=== PATIENT | male | born 1975 | race Caucasian/White ===

== ENCOUNTER 2018-12-19 04:30 | Emergency (ER) | payer MEDICAID ==
[~2018-12-19] VITALS: Ht 177.8 cm; Wt 86.2 kg
[~2018-12-19 04:30] MED LIST: (None)20 M1 PO; ALBU90OI INH; ALBU90OI6 INH; AMOX500 PO; AZIT250 PO; CLON.2TP TP; CODACE30 PO; CODACEE120 PO; CYCL10 PO; DOXY100 PO; ERYES400 PO; HYDACE10 PO; HYDACE10B; HYDACE5; HYDACE5 PO; HYDACE5325 PO; HYDGUAL120 PO; HYDMOR2 PO; IBUHYD; IBUP200; IBUP400 PO; IBUP800; IBUP800 PO; LORA.5 PO; LORA1 PO; METPRE4DP PO; MORPHINE; MUSCLE RELAXER; NAPR500 PO; NAPR500EC PO; NAPR550 PO; OXYACE5T PO; OXYACE7.5T; PRED10 PO; PRED20 PO; PREDNISONE TAPER; PROM25 PO; Prednisone20 MG PO; RXCODACET PO; RXCYCL10 PO; RXHYDACE PO; RXHYDMOR2 PO; RXNAPNA550 PO; RXTRAM50 PO; TRAM50 PO; Ultram50 MG PO; VARE1 PO; Ventolin Soln3 ML INH; Ventolin/Prove6.7 GM INH; Voltaren100 GM TOP; Zithromax250 MG PO
[2018-12-19] MEDS ORDERED: Benadryl Itch28.3 G1 TOP (07:55)
== END 2018-12-19 08:03 | disposition home or self-care (01) ==
LOC: ER 04:30
DX: L25.9 Unspecified contact dermatitis, unspecified cause (principal); F17.210 Nicotine dependence, cigarettes, uncomplicated
CPT/HCPCS: 99282; J1100; Q0163

== ENCOUNTER 2019-04-16 18:52 | Emergency (ER) | payer SELFPAY ==
[~2019-04-16] VITALS: Ht 175.3 cm; Wt 74.8 kg
[~2019-04-16 18:52] MED LIST changes: +Benadryl Itch28.3 G1 TOP
[2019-04-16] MEDS ORDERED: Triamcinolone A15 G3 TOP (19:22)
[2019-04-16] MEDS ORDERED: Monodox100 MG PO (19:22)
== END 2019-04-16 19:47 | disposition home or self-care (01) ==
LOC: ER 18:52
DX: L03.113 Cellulitis of right upper limb (principal); F17.210 Nicotine dependence, cigarettes, uncomplicated
CPT/HCPCS: 99282

== ENCOUNTER 2019-06-15 22:04 | Emergency (ER) | payer MEDICAID ==
[~2019-06-15] VITALS: Ht 177.8 cm; Wt 93.0 kg
[~2019-06-15 22:04] MED LIST changes: +Monodox100 MG PO; +Triamcinolone A15 G3 TOP
[2019-06-15 23:15] LABS: BASOPHILS ABSOLUTE AUTO 0.07 K/mm3 (0.00-0.23); BASOPHILS PERCENT AUTO 1 % (0-2); EOSINOPHILS ABSOLUTE AUTO 0.53 K/mm3 (0.00-0.68); EOSINOPHILS PERCENT AUTO 6 % (0-6); Hematocrit 43.3 % (37.0-53.0); Hemoglobin 14.2 g/dL (13.5-17.5); IMMATURE GRAN ABSOLUTE AUTO 0.03 K/mm3 (0.00-0.10); IMMATURE GRAN PERCENT AUTO 0 % (0-1); LYMPHOCYTES ABSOLUTE AUTO 2.36 K/mm3 (0.84-5.20); LYMPHOCYTES PERCENT AUTO 27 % (21-46); MONOCYTES ABSOLUTE AUTO 0.84 K/mm3 (0.16-1.47); MONOCYTES PERCENT AUTO 10 % (4-13); Mean Corpuscular HGB 30.6 pg (26.0-34.0); Mean Corpuscular HGB Conc 32.8 g/dL (31.5-36.5); Mean Corpuscular Volume 93 fL (80-100); Mean Platelet Volume 9.9 fL (9.1-12.4); NEUTROPHILS ABSOLUTE AUTO 4.96 K/mm3 (1.96-9.15); NEUTROPHILS PERCENT AUTO 57 % (41-73); Platelet Count 240 K/mm3 (150-400); RDW Coefficient Variation 13.2 % (11.7-14.2); RDW Standard Deviation 45.3 fL (35.1-46.3); Red Blood Cell Count 4.64 M/mm3 (4.30-5.90); White Blood Cell Count 8.79 K/mm3 (4.00-11.30)
[2019-06-15 23:35] LABS: Alanine Aminotransfer (ALT/SGP 29 U/L (12-78); Albumin, Blood 3.6 g/dL (3.4-5.0); Albumin/Globulin Ratio 1.3 (0.8-1.8); Alk Phos 65 U/L (50-136); Anion Gap 4 mmol/L (6-16); Aspartate Aminotrans (AST/SGOT 18 U/L (12-37); Bilirubin, Total 0.2 mg/dL (0.1-1.0); Blood Urea Nitrogen 18 mg/dL (8-24); CO2, Blood 28 mmol/L (21-32); Calcium, Blood 8.6 mg/dL (8.5-10.1); Chloride, Blood 110 mmol/L (98-108); Creatinine, Blood 0.82 mg/dL (0.60-1.20); Globulin, Blood 2.8 g/dL (2.2-4.0); Glomerular Filtration Rate >60 (60-); Glucose, Blood 122 mg/dL (70-99); Potassium, Blood 3.6 mmol/L (3.5-5.5); Sodium, Blood 142 mmol/L (136-145); Total Protein, Blood 6.4 g/dL (6.4-8.2)
[2019-06-15] MEDS ORDERED: Triamcinolone A15 G3 TOP (23:41)
[2019-06-15] MEDS ORDERED: BENADRYL25 MG PO (23:41)
== END 2019-06-15 23:50 | disposition home or self-care (01) ==
LOC: ER 22:04
PROVIDERS: Emergency Medicine
DX: L29.1 Pruritus scroti (principal); F17.210 Nicotine dependence, cigarettes, uncomplicated
CPT/HCPCS: 36415; 80053; 85025; 96374; 99283-25; J1200

== ENCOUNTER 2019-09-07 19:17 | Emergency (ER) | payer OTHER ==
[~2019-09-07] VITALS: Ht 177.8 cm; Wt 90.7 kg
[~2019-09-07 19:17] MED LIST changes: +BENADRYL25 MG PO
[2019-09-07] MEDS ORDERED: Keflex500 MG PO (21:24)
== END 2019-09-07 21:35 | disposition home or self-care (01) ==
LOC: ER 19:17
DX: S61.210A Laceration without foreign body of right index finger without damage to nail, initial encounter (principal); J45.909 Unspecified asthma, uncomplicated; F17.210 Nicotine dependence, cigarettes, uncomplicated; W26.0XXA Contact with knife, initial encounter
CPT/HCPCS: 12001; 99282-25; A9270-GY

== ENCOUNTER 2020-01-29 11:26 | Emergency (ER) | payer OTHER ==
[~2020-01-29] VITALS: Ht 177.8 cm; Wt 99.8 kg
[~2020-01-29 11:26] MED LIST changes: +Keflex500 MG PO
[2020-01-29 12:15] LABS: BASOPHILS ABSOLUTE AUTO 0.06 K/mm3 (0.00-0.23); BASOPHILS PERCENT AUTO 0 % (0-2); EOSINOPHILS ABSOLUTE AUTO 0.12 K/mm3 (0.00-0.68); EOSINOPHILS PERCENT AUTO 1 % (0-6); Hematocrit 45.7 % (37.0-53.0); Hemoglobin 15.1 g/dL (13.5-17.5); IMMATURE GRAN ABSOLUTE AUTO 0.27 K/mm3 (0.00-0.10); IMMATURE GRAN PERCENT AUTO 2 % (0-1); LYMPHOCYTES ABSOLUTE AUTO 2.35 K/mm3 (0.84-5.20); LYMPHOCYTES PERCENT AUTO 14 % (21-46); MONOCYTES ABSOLUTE AUTO 1.46 K/mm3 (0.16-1.47); MONOCYTES PERCENT AUTO 9 % (4-13); Mean Corpuscular HGB 30.4 pg (26.0-34.0); Mean Corpuscular Volume 92 fL (80-100); Mean Platelet Volume 10.1 fL (9.1-12.4); NEUTROPHILS ABSOLUTE AUTO 12.56 K/mm3 (1.96-9.15); NEUTROPHILS PERCENT AUTO 75 % (41-73); Platelet Count 280 K/mm3 (150-400); RDW Coefficient Variation 13.2 % (11.7-14.2); Red Blood Cell Count 4.97 M/mm3 (4.30-5.90); White Blood Cell Count 16.82 K/mm3 (4.00-11.30)
[2020-01-29 12:22] LABS: Alanine Aminotransfer (ALT/SGP 34 U/L (12-78); Albumin, Blood 3.9 g/dL (3.4-5.0); Albumin/Globulin Ratio 1.2 (0.8-1.8); Alk Phos 74 U/L (50-136); Anion Gap 5 mmol/L (6-16); Aspartate Aminotrans (AST/SGOT 17 U/L (12-37); Bilirubin, Total 0.2 mg/dL (0.1-1.0); Blood Urea Nitrogen 22 mg/dL (8-24); Bun/Creatinine Ratio 25.9 (12.0-20.0); CO2, Blood 28 mmol/L (21-32); Calcium, Blood 8.8 mg/dL (8.5-10.1); Chloride, Blood 105 mmol/L (98-108); Creatinine, Blood 0.85 mg/dL (0.60-1.20); Globulin, Blood 3.2 g/dL (2.2-4.0); Glomerular Filtration Rate >60 (60-); Glucose, Blood 108 mg/dL (70-99); Potassium, Blood 4.2 mmol/L (3.5-5.5); Sodium, Blood 138 mmol/L (136-145); Total Protein, Blood 7.1 g/dL (6.4-8.2)
[2020-01-29] MEDS ORDERED: Miralax17 GM PO (13:02)
== END 2020-01-29 13:16 | disposition home or self-care (01) ==
LOC: ER 11:26
PROVIDERS: Emergency Medicine
DX: K59.00 Constipation, unspecified (principal)
CPT/HCPCS: 36415; 74022; 80053; 83690; 85025; 93005; 93010; 96374; 96375; 99284-25; C9113; J2405

== ENCOUNTER 2020-12-31 08:37 | Emergency (ER) | payer OTHER ==
[~2020-12-31] VITALS: Ht 177.8 cm; Wt 90.7 kg
== END 2020-12-31 09:08 | disposition home or self-care (01) ==
LOC: ER 08:37
DX: L23.7 Allergic contact dermatitis due to plants, except food (principal); F17.210 Nicotine dependence, cigarettes, uncomplicated
CPT/HCPCS: 96372; 99282; 99283-25; A9270; J3301; J7512

== ENCOUNTER 2021-02-02 09:07 | Emergency (ER) | payer OTHER ==
[~2021-02-02] VITALS: Ht 177.8 cm; Wt 86.2 kg
[~2021-02-02 09:07] MED LIST changes: +Miralax17 GM PO
[2021-02-02] MEDS ORDERED: Betamethasone V15 GM TOP (09:31)
[2021-02-02] MEDS ORDERED: Prednisone20 MG PO (09:31)
== END 2021-02-02 09:36 | disposition home or self-care (01) ==
LOC: ER 09:07
DX: L23.7 Allergic contact dermatitis due to plants, except food (principal); F17.210 Nicotine dependence, cigarettes, uncomplicated
CPT/HCPCS: 99282

== ENCOUNTER 2021-03-02 20:50 | Emergency (ER) | payer OTHER ==
[~2021-03-02] VITALS: Ht 177.8 cm; Wt 87.1 kg
[~2021-03-02 20:50] MED LIST changes: +Betamethasone V15 GM TOP
[2021-03-02] MEDS ORDERED: Prednisone50 MG PO (21:59)
[2021-03-02] MEDS ORDERED: ALBU90OI INH (21:59)
== END 2021-03-02 22:36 | disposition home or self-care (01) ==
LOC: ER 20:50
DX: L23.7 Allergic contact dermatitis due to plants, except food (principal); F17.210 Nicotine dependence, cigarettes, uncomplicated; J45.909 Unspecified asthma, uncomplicated
CPT/HCPCS: 94664; 99283; A9270; J7512

== ENCOUNTER 2021-03-25 08:16 | Emergency (ER) | payer OTHER ==
[~2021-03-25] VITALS: Ht 177.8 cm; Wt 83.9 kg
[~2021-03-25 08:16] MED LIST changes: +Prednisone50 MG PO
[2021-03-25] MEDS ORDERED: EPIPEN0.3 MG/0.3 IM (11:12)
== END 2021-03-25 11:17 | disposition home or self-care (01) ==
LOC: ER 08:16
DX: T63.441A Toxic effect of venom of bees, accidental (unintentional), initial encounter (principal); R06.02 Shortness of breath; F17.210 Nicotine dependence, cigarettes, uncomplicated; Z91.030 Bee allergy status
CPT/HCPCS: 94640; 96374; 99285-25

== ENCOUNTER 2021-04-06 05:05 | Emergency (ER) | payer OTHER ==
[~2021-04-06] VITALS: Ht 177.8 cm; Wt 86.2 kg
[~2021-04-06 05:05] MED LIST changes: +EPIPEN0.3 MG/0.3 IM
== END 2021-04-06 06:19 | disposition home or self-care (01) ==
LOC: ER 05:05
DX: S20.212A Contusion of left front wall of thorax, initial encounter (principal); F17.210 Nicotine dependence, cigarettes, uncomplicated; W22.8XXA Striking against or struck by other objects, initial encounter; Y92.89 Other specified places as the place of occurrence of the external cause; Y99.0 Civilian activity done for income or pay
CPT/HCPCS: 71101; 99283-25

== ENCOUNTER 2021-10-22 15:37 | Emergency (ER) | payer OTHER ==
[~2021-10-22] VITALS: Ht 177.8 cm; Wt 93.0 kg
== END 2021-10-22 17:50 | disposition left against medical advice (07) ==
LOC: ER 15:37
DX: R05.9 Cough, unspecified (principal); Z53.21 Procedure and treatment not carried out due to patient leaving prior to being seen by health care provider
CPT/HCPCS: 99281

== ENCOUNTER 2021-12-25 05:45 | Emergency (ER) | payer OTHER ==
[~2021-12-25] VITALS: Ht 180.3 cm; Wt 89.8 kg
== END 2021-12-25 07:14 | disposition left against medical advice (07) ==
LOC: ER 05:45
DX: Z53.21 Procedure and treatment not carried out due to patient leaving prior to being seen by health care provider (principal)

== ENCOUNTER → 2022-01-07 | Outpatient (CLI) | payer OTHER | END | disposition home or self-care (01) | LOC: PLD 10:51 → LAB SHORT 10:51 | DX: D48.5 Neoplasm of uncertain behavior of skin (principal) | CPT/HCPCS: 88305 ==

== ENCOUNTER 2022-10-01 21:04 | Emergency (ER) | payer OTHER ==
[~2022-10-01] VITALS: Ht 177.8 cm; Wt 95.2 kg
== END 2022-10-01 22:44 | disposition left against medical advice (07) ==
LOC: ER 21:04
DX: S05.91XA Unspecified injury of right eye and orbit, initial encounter (principal); X58.XXXA Exposure to other specified factors, initial encounter; Z53.21 Procedure and treatment not carried out due to patient leaving prior to being seen by health care provider
CPT/HCPCS: A9270

== ENCOUNTER 2023-02-16 23:11 | Emergency (ER) | payer OTHER ==
[~2023-02-16] VITALS: Ht 177.8 cm; Wt 95.2 kg
[2023-02-16 23:17] VITALS: BP 167/97
[2023-02-16] MEDS ORDERED: SULTRIDS PO (23:50)
== END 2023-02-17 00:01 | disposition home or self-care (01) ==
LOC: ER 23:11
DX: L03.114 Cellulitis of left upper limb (principal); F17.210 Nicotine dependence, cigarettes, uncomplicated; Z91.030 Bee allergy status
CPT/HCPCS: 10060; 99283-25

== ENCOUNTER 2024-03-15 21:42 | Emergency (ER) | payer OTHER ==
[~2024-03-15] VITALS: Ht 177.8 cm; Wt 94.3 kg
[~2024-03-15 21:42] MED LIST changes: +ASPERFLEX1 EACH TOP; +BACTRIM DS TAB1 EAC1 PO; +Bactrim Ds Tab1 EACH PO; +CEPH500 PO; +Mupirocin22 GM TOP; +Robaxin750 MG PO; +SULTRIDS PO
[2024-03-15] MEDS ORDERED: Dexamethasone Sod Phos 10 MG/ML 1ML VIAL IV ONE (21:55)
[2024-03-15] MEDS ORDERED: DiphenhydrAMINE HCl 50 MG/ML 1ML Vial IV ONE (21:55)
[2024-03-15] MEDS ORDERED: Famotidine 10 MG/ML 2ML Vial IV ONE (21:55)
[2024-03-15] MEDS ORDERED: Ipratropium/Albuterol SulF 2.5-0.5MG/3 ML Amp INH ONE (22:00)
[2024-03-15 22:49] VITALS: BP 152/98
== END 2024-03-15 22:59 | disposition home or self-care (01) ==
LOC: ER 21:42
DX: T63.441A Toxic effect of venom of bees, accidental (unintentional), initial encounter (principal)
CPT/HCPCS: 94640; 94664; 96374; 96375; 99283-25; J1100; J1200

== ENCOUNTER 2024-05-06 17:40 | Emergency (ER) | payer OTHER ==
[~2024-05-06] VITALS: Ht 177.8 cm; Wt 93.9 kg
[~2024-05-06 17:40] MED LIST changes: +LIDO700A20 TOP
[2024-05-06 18:17] VITALS: BP 164/80
[2024-05-06] MEDS ORDERED: Cephalexin Monohydrate 500 MG Cap PO ONE (19:10)
[2024-05-06] MEDS ORDERED: CEPH500 PO (19:10)
== END 2024-05-06 19:15 | disposition home or self-care (01) ==
LOC: ER 17:40
DX: L02.413 Cutaneous abscess of right upper limb (principal); J45.909 Unspecified asthma, uncomplicated; F17.210 Nicotine dependence, cigarettes, uncomplicated; Z91.030 Bee allergy status
CPT/HCPCS: 10060; 99282-25; A9270

== ENCOUNTER 2024-05-27 15:42 | Emergency (ER) | payer OTHER ==
[~2024-05-27] VITALS: Ht 177.8 cm; Wt 86.2 kg
[2024-05-27 16:35] VITALS: BP 164/88
[2024-05-27] MEDS ORDERED: CEPH500 PO (18:03)
[2024-05-27] MEDS ORDERED: Cephalexin Monohydrate 500 MG Cap PO ONE (18:05)
== END 2024-05-27 18:05 | disposition home or self-care (01) ==
LOC: ER 15:42
DX: L03.116 Cellulitis of left lower limb (principal); J45.909 Unspecified asthma, uncomplicated; F17.210 Nicotine dependence, cigarettes, uncomplicated; Z91.030 Bee allergy status
CPT/HCPCS: A9270

== ENCOUNTER 2024-08-24 19:07 | Emergency (ER) | payer OTHER ==
[~2024-08-24] VITALS: Ht 177.8 cm; Wt 90.7 kg
[2024-08-24 19:23] VITALS: BP 197/98
== END 2024-08-24 19:26 | disposition home or self-care (01) ==
LOC: ER 19:07
DX: S80.811A Abrasion, right lower leg, initial encounter (principal); F17.210 Nicotine dependence, cigarettes, uncomplicated; X58.XXXA Exposure to other specified factors, initial encounter; Z91.030 Bee allergy status
CPT/HCPCS: 99282

== ENCOUNTER 2024-11-02 13:57 | Emergency (ER) | payer OTHER ==
[~2024-11-02] VITALS: Ht 177.8 cm; Wt 93.0 kg
[2024-11-02 15:24] LABS: BASOPHILS ABSOLUTE AUTO 0.09 K/mm3 (0.00-0.23); BASOPHILS PERCENT AUTO 1 % (0-2); EOSINOPHILS ABSOLUTE AUTO 0.24 K/mm3 (0.00-0.68); EOSINOPHILS PERCENT AUTO 2 % (0-6); Hematocrit 46.3 % (37.0-53.0); Hemoglobin 15.5 g/dL (13.5-17.5); IMMATURE GRAN ABSOLUTE AUTO 0.05 K/mm3 (0.00-0.10); IMMATURE GRAN PERCENT AUTO 0 % (0-1); LYMPHOCYTES ABSOLUTE AUTO 1.81 K/mm3 (0.84-5.20); LYMPHOCYTES PERCENT AUTO 13 % (21-46); MONOCYTES PERCENT AUTO 7 % (4-13); Mean Corpuscular HGB Conc 33.5 g/dL (31.5-36.5); Mean Corpuscular Volume 90 fL (80-100); Mean Platelet Volume 9.5 fL (9.1-12.4); NEUTROPHILS PERCENT AUTO 78 % (41-73); Platelet Count 351 K/mm3 (150-400); RDW Standard Deviation 42.7 fL (35.1-46.3); Red Blood Cell Count 5.16 M/mm3 (4.30-5.90); White Blood Cell Count 14.39 K/mm3 (4.00-11.30)
[2024-11-02 15:49] LABS: Albumin, Blood 3.3 g/dL (3.4-5.0); Albumin/Globulin Ratio 0.8 (0.8-1.8); Bilirubin, Total 0.4 mg/dL (0.1-1.0); Bun/Creatinine Ratio 18.5 (12.0-20.0); Calcium, Blood 9.4 mg/dL (8.5-10.1); Creatinine, Blood 0.65 mg/dL (0.60-1.20); Globulin, Blood 4.2 g/dL (2.2-4.0); Potassium, Blood 4.6 mmol/L (3.5-5.5); Total Protein, Blood 7.5 g/dL (6.4-8.2)
[2024-11-02 16:29] LABS: Source, Urine Clean Catch
[2024-11-02 16:38] LABS: Appearance, Urine Clear (Clear); Bilirubin, Urine Neg (Neg); Blood, Urine Neg (Neg); Color, Urine Yellow (P-Yellow); Glucose Qualitative, Urine Neg (Neg); Ketones, Urine Neg (Neg); Leukocyte Esterase, Urine 1+ (Neg); Nitrite, Urine Neg (Neg); Protein, Urine 1+ (Neg); Urobilinogen, Urine 1+ (Normal)
[2024-11-02 17:03] LABS: Bacteria Mod /hpf; Mucus Mod (0-Heavy); Red Blood Cells, Urine 0-2 /hpf (0-2); Squamous Epithelial Cells Rare /hpf (Few)
[2024-11-02] MEDS ORDERED: Ondansetron HCl 2 MG / ML 2ML Vial IV ONE (18:10)
[2024-11-02] MEDS ORDERED: NS 1,000 ML IV SCH (18:10)
[2024-11-02] MEDS ORDERED: Cephalexin Monohydrate 500 MG Cap PO ONE (18:10)
[2024-11-02] MEDS ORDERED: CEPH500 PO (19:17)
[2024-11-02 19:26] VITALS: BP 142/91
== END 2024-11-02 19:29 | disposition home or self-care (01) ==
LOC: ER 13:57
PROVIDERS: Student in an Organized Health Care Education/Training Program
DX: T24.211A Burn of second degree of right thigh, initial encounter (principal); L03.115 Cellulitis of right lower limb; J45.909 Unspecified asthma, uncomplicated; F17.210 Nicotine dependence, cigarettes, uncomplicated; Z91.030 Bee allergy status
CPT/HCPCS: 36415; 71046; 80053; 81001; 83605; 85025; A9270; J2405; J7030